=== PATIENT | male | born 1975 | race Caucasian/White ===

== ENCOUNTER 2019-09-18 02:31 | Emergency (ER) | payer BC ==
[2019-09-18] MEDS ORDERED: Sodium Chloride 0.9% 10 ML Syringe FLUSH PRN (02:38)
[2019-09-18] MEDS ORDERED: Diphtheria,Pertussis(Acell),Tetanus Vaccine 0.5 ML SDV IM ONE (02:59)
[2019-09-18] MEDS ORDERED: Sodium Chloride 0.9% 1,000 ML IV ONE (02:59)
[2019-09-18] MEDS ORDERED: Ondansetron 4 MG/2 ML SDV IV ONE (03:07)
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
[2019-09-18 03:30] VITALS: BP 122/86; PULSE 89
== END 2019-09-18 03:58 | disposition home or self-care (01) ==
LOC: DL.ED 02:31
DX: S06.0X9A Concussion with loss of consciousness of unspecified duration, initial encounter (principal); S01.01XA Laceration without foreign body of scalp, initial encounter; Z23 Encounter for immunization; E11.9 Type 2 diabetes mellitus without complications; Z88.8 Allergy status to other drugs, medicaments and biological substances; V78.4XXA Person boarding or alighting from bus injured in noncollision transport accident, initial encounter
CPT/HCPCS: 12001; 70450; 72125; 82962; 90471; 90715; 96361; 96374; 99284; J2405; J7030

== ENCOUNTER 2023-09-29 06:28 | Day surgery (SDC) | payer BC ==
[2023-09-29] MEDS ORDERED: Dextrose 5%-0.45% NaCl 1,000 ML IV SCH (06:30)
[2023-09-29] MEDS ORDERED: fentaNYL 100 MCG/2 ML SDV ONE (07:25)
[2023-09-29] MEDS ORDERED: Midazolam 1 MG/ML 2 ML SDV ONE (07:25)
[2023-09-29] MEDS ORDERED: fentaNYL 100 MCG/2 ML SDV IV ONE ×2 (07:34→07:35)
[2023-09-29] MEDS ORDERED: Midazolam 1 MG/ML 2 ML SDV IV ONE ×6 (07:35→07:41)
[2023-09-29 09:17] VITALS: BP 121/86; PULSE 59
== END 2023-09-29 09:25 | disposition home or self-care (01) ==
LOC: DL.ENDO 06:28
PROVIDERS: ATTEND Internal Medicine Gastroenterology
DX: Z12.11 Encounter for screening for malignant neoplasm of colon (principal); E11.9 Type 2 diabetes mellitus without complications; J45.909 Unspecified asthma, uncomplicated; G47.33 Obstructive sleep apnea (adult) (pediatric); F17.220 Nicotine dependence, chewing tobacco, uncomplicated; E78.5 Hyperlipidemia, unspecified; E66.09 Other obesity due to excess calories; Z68.32 Body mass index [BMI] 32.0-32.9, adult; Z86.16 Personal history of COVID-19; Z79.899 Other long term (current) drug therapy; Z88.8 Allergy status to other drugs, medicaments and biological substances
CPT/HCPCS: J2250; J3010; J7042